=== PATIENT | male | born 1990 | race Two or more races ===

== ENCOUNTER 2019-05-20 12:21 | Emergency (ER) | payer OTHER ==
[~2019-05-20] VITALS: Ht 172.7 cm; Wt 118.4 kg
[2019-05-20 12:58] VITALS: BP 122/89
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
== END 2019-05-20 14:29 | disposition home or self-care (01) ==
LOC: ER 12:29
DX: T23.002A Burn of unspecified degree of left hand, unspecified site, initial encounter (principal); X19.XXXA Contact with other heat and hot substances, initial encounter; Y93.89 Activity, other specified; Y92.89 Other specified places as the place of occurrence of the external cause; Y99.0 Civilian activity done for income or pay